=== PATIENT | female | born 1965 | race Caucasian/White ===

== ENCOUNTER 2022-07-23 17:01 | Outpatient (CLI) | payer BC, SELFPAY ==
[2022-07-23 21:57] LABS: Creatine Kinase* 180 U/L (41-117)
== END 2022-07-23 17:02 | disposition home or self-care (01) ==
LOC: LKVREF 17:04
PROVIDERS: PCP Physician Assistant Medical; Visit Provider Registered Nurse
DX: R10.9 Unspecified abdominal pain (principal); M54.50 Low back pain, unspecified; R30.0 Dysuria
CPT/HCPCS: 82550; 87086

== ENCOUNTER 2023-07-13 13:51 | Outpatient (CLI) | payer BC, SELFPAY | END 2023-07-13 13:52 | disposition home or self-care (01) | PROVIDERS: PCP Physician Assistant Medical; Visit Provider Family Medicine | DX: Z00.00 Encounter for general adult medical examination without abnormal findings (principal); Z13.6 Encounter for screening for cardiovascular disorders; Z11.59 Encounter for screening for other viral diseases | CPT/HCPCS: 80053; 80061; 86803 ==

== ENCOUNTER 2023-11-04 16:06 | Outpatient (CLI) | payer OTHER, SELFPAY | END 2023-11-04 16:07 | disposition home or self-care (01) | LOC: NFLDREF 11-05 11:14 | PROVIDERS: PCP Physician Assistant Medical; Referring Provider Physician Assistant Medical; Visit Provider Physician Assistant Medical | DX: R30.0 Dysuria (principal) | CPT/HCPCS: 87086 ==

== ENCOUNTER 2024-08-12 12:32 | Outpatient (CLI) | payer BC, MEDICAID, SELFPAY ==
--- NOTE | 2024-08-12 13:00 | CRLHL7_ITS ---
For Patients: As a result of the Century Cures Act, medical imaging exams and procedure reports are released immediately into your electronic medical record. You may view this report before your referring provider. If you have questions, please contact your health care provider. BILATERAL SCREENING MAMMOGRAM WITH COMPUTER-AIDED DETECTION AND TOMOSYNTHESIS TECHNIQUE: CC and MLO views were obtained. These mammographic images have been obtained using full-field digital technique. These mammographic images were interpreted with the benefit of computer-aided detection. Breast Tomosynthesis was used in this interpretation. COMPARISON FILM: 01/02/2021, 05/04/2019, 07/08/2016. FINDINGS: There are scattered areas of fibroglandular density IMPRESSION: There is no radiographic evidence for malignancy. ASSESSMENT: BI-RADS Category 2: Benign RECOMMENDATION: Routine screening mammogram in 1 year. A lay language report of this examination will be provided to the patient. Yonathan Parish M.D. Diagnostic Radiologist [email or web address] ANGY/Dictated by: Yonathan Parish MD @ 08/15/2024 9:11:00 AM (Electronically Signed)
== END 2024-08-12 12:33 | disposition home or self-care (01) ==
LOC: MAMMO 12:39
PROVIDERS: PCP Physician Assistant Medical; Visit Provider Registered Nurse
DX: Z12.31 Encounter for screening mammogram for malignant neoplasm of breast (principal)
CPT/HCPCS: 77063; 77067

== ENCOUNTER 2025-01-31 15:42 | Outpatient (CLI) | payer BC, SELFPAY ==
[2025-02-03 08:03] LABS: HPV Source Cervix; HPV, High Risk by TMA Not Detected
[2025-02-09 16:30] LABS: Pap Test Reviewed by Path Done
== END 2025-01-31 15:43 | disposition home or self-care (01) ==
PROVIDERS: PCP Physician Assistant Medical; Visit Provider Registered Nurse
DX: Z12.4 Encounter for screening for malignant neoplasm of cervix (principal)
CPT/HCPCS: 87624; 87625; 88141; 88142